=== PATIENT | female | born 1955 | race Caucasian/White ===

== ENCOUNTER 2017-06-21 03:24 | Inpatient (IN) | payer BC, OTHER ==
[~2017-06-21] VITALS: Ht 154.9 cm; Wt 87.7 kg
[2017-06-21 04:40] LABS: MEAN CORPUSCULAR HEMOGLOBIN 32.8 pg (27.0-33.0); MEAN CORPUSCULAR HGB CONC 34.2 g/dl (32.0-36.5); MEAN CORPUSCULAR VOLUME 95.9 fl (80.0-96.0); PLATELET COUNT, AUTOMATED 308 k/mm3 (150-450); RED CELL DISTRIBUTION WIDTH 13.5 % (11.5-14.5); WHITE BLOOD COUNT 13.2 K/mm3 (4.0-10.0)
[2017-06-21 04:47] LABS: ALBUMIN 3.4 GM/DL (3.2-5.2); ALBUMIN/GLOBULIN RATIO 0.87 (1.00-1.93); ALKALINE PHOSPHATASE 91 U/L (45-117); ALT/SGPT 20 U/L (12-78); AMYLASE 32 U/L (25-115); ANION GAP 11 MEQ/L (8-16); AST/SGOT 19 U/L (15-37); BILIRUBIN,DIRECT 0.2 MG/DL (0.0-0.2); BILIRUBIN,TOTAL 0.5 MG/DL (0.2-1.0); BLOOD UREA NITROGEN 16 MG/DL (7-18); CALCIUM LEVEL 9.3 MG/DL (8.8-10.2); CARBON DIOXIDE LEVEL 26 MEQ/L (21-32); CHLORIDE LEVEL 103 MEQ/L (98-107); CREATININE FOR GFR 0.78 MG/DL (0.55-1.02); GLOMERULAR FILTRATION RATE > 60.0 (>45); GLUCOSE, FASTING 168 MG/DL (80-110); POTASSIUM SERUM 4.5 MEQ/L (3.5-5.1); SODIUM LEVEL 140 MEQ/L (136-145); TOTAL PROTEIN 7.3 GM/DL (6.4-8.2)
[2017-06-21] MEDS ORDERED: ONDANSETRON 4MG/2ML VIAL (J2405) IV ONE (05:15)
[2017-06-21 05:16] LABS: BASO % 0.2 % (0.0-1.0); EOS % 0.1 % (0.0-3.0); LARGE UNSTAINED CELL # 0.2 K/mm3 (0.0-0.4); LARGE UNSTAINED CELL % 1.6 % (0.0-4.0); LYMPH # 0.7 K/mm3 (1.5-4.5); LYMPH % 3.8 % (24.0-44.0); MONO # 0.4 K/mm3 (0.0-0.8); MONO % 3.2 % (0.0-5.0); NEUTROPHILS # 12.6 K/mm3 (1.8-7.7); NEUTROPHILS % 91.2 % (36.0-66.0)
[2017-06-21] MEDS ORDERED: ISOVUE-370 76% 100ML VIAL (Q9967) As Ordered ONE (05:17)
[2017-06-21] MEDS: MORPHINE 4 MG/ML 1ML SYRINGE IV PRN ×5 (05:21→23:36)
[2017-06-21 05:47] LABS: DIFF SLIDE NUMBER 77
--- NOTE | 2017-06-21 06:20 | REPUSA ---
CLINICAL HISTORY: Abdominal pain. TECHNIQUE: Multiple axial, sagittal and coronal CT images were obtained through the abdomen and pelvi s after administration of oral and intravenous contrast material. COMMENTS: Right mastectomy. Distended gallbladder containing stone impacted at its neck. Thickening of the wall of the gallbladder with a surrounding inflammatory fat stranding and free flui d. Hepatomegaly with fatty infiltration. Sigmoid diverticulosis with diffuse thickening of the mid aspect of the sigmoid colon. Distended bladder. The liver is of uniform attenuation without mass or defect. There is no intra or extrahepatic biliary ductal dilatation. The spleen is normal. The pancreas is of normal contour and attenuation characteristics. There is no evidence of adrenal ma ss. Both kidneys demonstrate prompt and equal nephrograms. The kidneys are normal in size, shape and conf iguration. There is no evidence of renal or ureteral mass. No renal or ureteral calculi are identifie d. There is no hydroureter or hydronephrosis. No evidence for appendicitis. No evidence for small or large bowel obstruction. There is no evidence of abdominal ascites or lymphadenopathy. There is no evidence of intrinsic or extrinsic bladder mass. There is no pelvic ascites or lymphadeno kanu. Images of the lung bases show no evidence of pleural or parenchymal mass. There are no pleural effusi ons. The bony structures are free of lytic or blastic lesions. Multilevel degenerative changes are seen in volving the thoracolumbar spine. Scattered calcifications are seen involving the aorta and major bran ches compatible with atherosclerosis. IMPRESSION: Right mastectomy. Distended gallbladder containing stone impacted at its neck. Thickening of the wall of the gallbladder with a surrounding inflammatory fat stranding and free flui d. Findings are suggestive of acute calculus cholecystitis. Hepatomegaly with fatty infiltration. Sigmoid diverticulosis with diffuse thickening of the mid aspect of the sigmoid colon. Findings are s uggestive of acute diverticulitis. No perforation or abscess formation. Distended bladder. Small sliding hiatal hernia. Thank you for your kind referral of this patient.
--- NOTE | 2017-06-21 09:36 | HPEPDOC ---
General Surgery H&P Date of Admission History and Physical CHIEF COMPLAINT: abdominal pain HISTORY OF PRESENT ILLNESS: 61 F with overnight history of epigastric pain radiating to the right upper quadrant area with worsening overnight, associated with retching, nausea and vomiting. No fevers or chills reported. No previous episodes of similar symptoms. Patient reports being uncomfortable throughout the evening, could not get into a comfortable position and early this morning have some nausea, retching though nothing is coming out. Reports sharp, epigastric pain. ALLERGIES: Please see below. HOME MEDICATIONS: Please see below. PAST MEDICAL HISTORY: right breast cancer PAST SURGICAL HISTORY: right breast mastectomy right breast reconstruction- looks like a TRAM flap. Patient reports taking a vein on her leg for the breast reconstruction. Unfortunately the flap did not take and off. She does not know if she had a mesh prophylactically placed in the abdominal incision. PERSONAL/SOCIAL HISTORY: Denies smoking, alcohol use, or recreational drug use. REVIEW OF SYSTEMS: GENERAL: Denies chills, fatigue, fever, weight gain and weight loss. HEENT: Denies blurred vision and double vision. Denies ear symptoms. Denies hoarseness. NECK: Denies any neck pain. CARDIOVASCULAR: Denies chest pain and palpitations. MUSCULOSKELETAL: Denies arthralgias, back pain and thrombophlebitis. SKIN: Denies rash. NEUROLOGIC: Denies headache, stroke and transient ischemic attack. PSYCHIATRIC: Denies anxiety and depression. ENDOCRINE: Denies thyroid disease. HEMATOLOGY/ONCOLOGY: Denies any bleeding or clotting disorder. HEART: Denies any chest pains, palpitations, paroxysmal dyspnea, orthopnea. PULMONARY: Denies chronic cough, dyspnea and wheezing. GASTROINTESTINAL: Denies rectal bleeding, family history of colon cancer, constipation, diarrhea, dysphagia, heartburn and jaundice. GENITOURINARY: Denies dysuria, frequency, hematuria and nocturia. ENDOCRINE: Denies polydipsia, polyphagia, polyuria, heat or cold intolerance. INFECTIOUS: Denies any recent upper respiratory tract infection, UTI, need for use of antibiotics. NUTRITION: Reports good appetite. PHYSICAL EXAMINATION: VITAL SIGNS: Please see below. GENERAL APPEARANCE: Patient seen at bedside, appears comfortable. Awake, alert, oriented. HEENT: Normocephalic, atraumatic. [place] palpebral conjunctivae. Anicteric sclerae. Lips moist. CHEST: No chest wall abnormalities. Normal respiratory motion/effort. NECK: Supple. No thyromegaly. No lymphadenopathies. LUNGS: Lung sounds are clear to auscultation bilaterally. No wheezing appreciated. HEART: No chest wall abnormalities. Heart rate and rhythm are regular with no murmurs. ABDOMEN: Abdomen markedly round, mildly distended, protuberant lower abdominal inverted t incision from previous breast reconstruction. Tender over epigastric and right upper quadrant area with mild guarding. SKIN: Warm, moist. EXTREMITIES: Extremities have no deformities. No edema identified. NEUROLOGICAL: . ANCILLARIES: . LABORATORY DATA: Please see below. MICROBIOLOGY: Please see below. IMAGING: . IMPRESSION AND PLAN: Acute Cholecystitis from Cholelithiasis Patient will be admitted under my service. We will start her on antibiotics today, keep her NPO. Plan for laparoscopic cholecystectomy tomorrow. Details, benefits and risks of the procedures have been explained to the patient and her was at the bedside with him. Their concerns and questions were addressed at this. They are in agreement with our plan of therapy Vital Signs Vital Signs Date Time Temp Pulse Resp B/P (MAP) Pulse Ox O2 Delivery O2 Flow Rate FiO2 06/21/17 09:06 99.1 06/21/17 07:40 18 06/21/17 07:09 80 97 Room Air Laboratory Data Labs 24H Laboratory Tests 2 06/21/17 04:12: Neutrophils (%) (Auto) 91.2H, Lymphocytes (%) (Auto) 3.8L, Monocytes (%) (Auto) 3.2, Eosinophils (%) (Auto) 0.1, Basophils (%) (Auto) 0.2, Large Unclassified Cells % 1.6, Neutrophils # (Auto) 12.6H, Lymphocytes # (Auto) 0.7L, Monocytes # (Auto) 0.4, Eosinophils # (Auto) 0.0, Basophils # (Auto) 0.0, Large Unclassified Cells # 0.2, Platelet Estimate NORMAL, Anion Gap 11, Glomerular Filtration Rate > 60.0, Blood Urea Nitrogen 16, Creatinine 0.78, Sodium Level 140, Potassium Level 4.5, Chloride Level 103, Carbon Dioxide Level 26, Calcium Level 9.3, Aspartate Amino Transf (AST/SGOT) 19, Alanine Aminotransferase (ALT/ SGPT) 20, Total Creatine Kinase 38, Alkaline Phosphatase 91, Total Bilirubin 0.5 , Direct Bilirubin 0.2, Total Protein 7.3, Albumin 3.4, Creatine Kinase MB 1.0, Creatine Kinase MB Relative Index 2.63, Troponin I < 0.02, Albumin/Globulin Ratio 0.87L, Amylase Level 32, Lipase 165 CBC/BMP Laboratory Tests 06/21/17 04:12 Red Blood Count 4.27, Mean Corpuscular Volume 95.9, Mean Corpuscular Hemoglobin 32.8, Mean Corpuscular Hemoglobin Concent 34.2, Red Cell Distribution Width 13.5 , Calcium Level 9.3, Aspartate Amino Transf (AST/SGOT) 19, Alanine Aminotransferase (ALT/SGPT) 20, Total Creatine Kinase 38, Alkaline Phosphatase 91, Total Bilirubin 0.5, Direct Bilirubin 0.2, Total Protein 7.3, Albumin 3.4 Home Medications Scheduled (Caltrate 600+D 600-800 mg-Unit) 1 Tab Tab, 1 TAB PO BID, (Reported) Aspirin (Aspirin EC) 81 Mg Tab, 81 MG PO QHS, (Reported) B1/B2/B3/B5/B6 (Vitamin B Complex) 1 Tab Tab, 1 TAB PO DAILY, (Reported) Cholecalciferol (Vitamin D) 1,000 Unit Tab, 1,000 UNIT PO QHS, (Reported) Fish Oil (Fish Oil) 1,000 Mg Cap, 1,000 MG PO QHS, (Reported) Multivitamins *[facility] STOCKED* (Thera M Plus *[facility] STOCKED*) 1 Tab Tab, 1 TAB PO QHS , (Reported) Allergies Coded Allergies: Codeine (Unverified Adverse Reaction, Intermediate, NAUSEA AND VOMITING, ) KRISTOPHER MOSLEY MD Jun 21, 2017 09:36
[2017-06-21] MEDS ORDERED: ASPI81TA24 PO (09:40)
[2017-06-21] MEDS ORDERED: FISH1000 PO (09:40)
[2017-06-21] MEDS ORDERED: VITA100066 PO (09:40)
[2017-06-21] MEDS ORDERED: VITATAB11 PO (09:40)
[2017-06-21] MEDS ORDERED: CALTTAB11 PO (09:40)
[2017-06-21] MEDS ORDERED: VITMTA PO (09:40)
[2017-06-21] MEDS: ONDANSETRON 4MG/2ML VIAL (J2405) IV PRN ×2 (10:33→21:04)
[2017-06-21] MEDS ORDERED: metroNIDAZOLE 500 MG in APPROPRIATE DILUENT 1 EA IV SCH (11:00)
[2017-06-21] MEDS: KETOROLAC 30 MG/ML VIAL (J1885) IV PRN ×2 (11:45→20:59)
[2017-06-21] MEDS: SENOKOT S TAB PO SCH ×2 (13:47→20:59)
[2017-06-21] MEDS: AMPICILLIN SOD/SULBACTAM SOD 3 GM in D5W MINI-BAG PLUS 100 ML IV SCH ×3 (13:48→23:27)
[2017-06-21] MEDS: PANTOPRAZOLE 40MG INJ (PROTONIX) (C9113) IV SCH (13:48)
[2017-06-21] MEDS: metroNIDAZOLE 500 MG in APPROPRIATE DILUENT 1 EA IV SCH ×2 (13:49→20:54)
[2017-06-21 14:00] VITALS: BP 163/89
[2017-06-21] MEDS: LR 1,000 ML IV SCH ×2 (14:00→20:54)
[2017-06-21] MEDS: ACETAMINOPHEN TAB 650MG DOSE (2X325MG) PO PRN ×2 (17:19→23:36)
--- NOTE | 2017-06-21 21:35 | ECGEPIP ---
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
[2017-06-21 22:00] VITALS: BP 145/88
[2017-06-22] VITALS (8 sets, daily range): BP systolic 110–158; BP diastolic 69–92
[2017-06-22] MEDS: LR 1,000 ML IV SCH ×3 (00:33→17:24)
[2017-06-22] MEDS: metroNIDAZOLE 500 MG in APPROPRIATE DILUENT 1 EA IV SCH ×4 (02:06→20:20)
[2017-06-22] MEDS: AMPICILLIN SOD/SULBACTAM SOD 3 GM in D5W MINI-BAG PLUS 100 ML IV SCH ×4 (05:47→23:41)
[2017-06-22 05:55] LABS: BASO % 0.2 % (0.0-1.0); EOS # 0.1 K/mm3 (0.0-0.50); EOS % 0.6 % (0.0-3.0); LARGE UNSTAINED CELL # 0.4 K/mm3 (0.0-0.4); LARGE UNSTAINED CELL % 2.7 % (0.0-4.0); LYMPH % 4.5 % (24.0-44.0); MEAN CORPUSCULAR HEMOGLOBIN 33.4 pg (27.0-33.0); MEAN CORPUSCULAR HGB CONC 34.2 g/dl (32.0-36.5); MEAN CORPUSCULAR VOLUME 97.5 fl (80.0-96.0); MONO # 0.9 K/mm3 (0.0-0.8); MONO % 6.3 % (0.0-5.0); NEUTROPHILS # 11.7 K/mm3 (1.8-7.7); NEUTROPHILS % 85.7 % (36.0-66.0); PLATELET COUNT, AUTOMATED 322 k/mm3 (150-450); RED CELL DISTRIBUTION WIDTH 13.6 % (11.5-14.5); WHITE BLOOD COUNT 13.7 K/mm3 (4.0-10.0)
[2017-06-22 06:18] LABS: ALBUMIN 2.7 GM/DL (3.2-5.2); ALBUMIN/GLOBULIN RATIO 0.77 (1.00-1.93); ALKALINE PHOSPHATASE 93 U/L (45-117); ALT/SGPT 36 U/L (12-78); ANION GAP 9 MEQ/L (8-16); AST/SGOT 33 U/L (15-37); BILIRUBIN,TOTAL 0.6 MG/DL (0.2-1.0); BLOOD UREA NITROGEN 15 MG/DL (7-18); CALCIUM LEVEL 8.2 MG/DL (8.8-10.2); CARBON DIOXIDE LEVEL 27 MEQ/L (21-32); CHLORIDE LEVEL 104 MEQ/L (98-107); CREATININE FOR GFR 0.58 MG/DL (0.55-1.02); GLOMERULAR FILTRATION RATE > 60.0 (>45); GLUCOSE, FASTING 130 MG/DL (80-110); SODIUM LEVEL 140 MEQ/L (136-145); TOTAL PROTEIN 6.2 GM/DL (6.4-8.2)
[2017-06-22] MEDS: SENOKOT S TAB PO SCH ×2 (07:46→20:20)
[2017-06-22] MEDS: PANTOPRAZOLE 40MG INJ (PROTONIX) (C9113) IV SCH (07:46)
[2017-06-22] MEDS: KETOROLAC 30 MG/ML VIAL (J1885) IV PRN ×2 (07:47→17:24)
[2017-06-22] MEDS: ONDANSETRON 4MG/2ML VIAL (J2405) IV PRN (07:47)
[2017-06-22] MEDS: ENOXAPARIN 40 MG/0.4 ML SYRINGE (J1650) SC SCH (08:50)
--- NOTE | 2017-06-22 10:43 | IPNPDOC ---
Subjective General Date/Time Seen The patient was seen on 06/22/17 at 10:41. Subject Chief Complaint/History The patient is a 61-year-old female admitted with a reason for visit of Abdominal Pain. Patient continued to have abdominal discomfort overnight but has moved more to the right upper quadrant than the periumbilical/epigastric area. Reports some mild nausea but no vomiting. Current Medications Current Medications Current Medications Acetaminophen (Tylenol Tab) 650 mg Q4HP PRN PO MILD PAIN or TEMP > 101 Last administered on 06/21/17 23:36; Start 06/21/17 at 09:30; Stop 07/21/17 at 09:29 Ampicillin Sodium/ Sulbactam Sodium 3 gm/Dextrose 100 ml @ 200 mls/hr Q6H IV Last administered on 06/22/17 05:47; Start 06/21/17 at 12:00; Stop 06/28/17 at 11:59 Enoxaparin Sodium (Lovenox) 40 mg DAILY SC ; Start 06/22/17 at 09:00; Stop 06/27 at 08:59 Home Med (Med Rec Complete!) ASDIRECTED XX ; Start 06/21/17 at 09:45; Stop at 09:45; Status DC Ketorolac Tromethamine (ToRADol) 30 mg Q6HP PRN IV MILD/MODERATE PAIN (PS 1-7) Last administered on 06/22/17 07:47; Start 06/21/17 at 09:30; Stop 06/26/17 at 09:29 Lactated Ringer's 1,000 ml @ 125 mls/hr Q8H IV Last administered on 06/22/17 00:33; Start 06/21/17 at 09:28; Stop 07/21/17 at 09:27 Metronidazole 500 mg/IV Miscellaneous Supplies 100 ml @ 100 mls/hr Q6H IV ; Start 06/21/17 at 11:00; Stop 06/21/17 at 13:06; Status DC Metronidazole 500 mg/IV Miscellaneous Supplies 100 ml @ 100 mls/hr Q6H IV Last administered on 06/22/17 07:46; Start 06/21/17 at 14:00; Stop 06/28/17 at 13:59 Morphine Sulfate (Morphine Sulfate Inj) 4 mg Q2HP PRN IV SEVERE PAIN (PS 8-10) Last administered on 06/21/17 23:36; Start 06/21/17 at 09:30; Stop 06/28/17 at 09:29 Morphine Sulfate (Morphine Sulfate Inj) 4 mg Q30M PRN IV SEVERE PAIN (PS 8-10) Last administered on 06/21/17 07:13; Start 06/21/17 at 05:15; Stop 06/21/17 at 07:14; Status DC Ondansetron HCl (ZOFRAN INJection) 4 mg Q6HP PRN IV NAUSEA OR VOMITING Last administered on 06/22/17 07:47; Start 06/21/17 at 09:30; Stop 07/21/17 at 09:29 Pantoprazole Sodium (Protonix) 40 mg DAILY IV Last administered on 06/22/17 07 :46; Start 06/21/17 at 09:00; Stop 07/21/17 at 08:59 Senna/Docusate Sodium (Senokot S) 1 tab BID PO Last administered on 06/22/17 07:46; Start 06/21/17 at 09:00; Stop 07/21/17 at 08:59 Allergies Coded Allergies: Codeine (Unverified Adverse Reaction, Intermediate, NAUSEA AND VOMITING, ) Objective Physical Examination Examination GENERAL APPEARANCE:Patient seen, laying in bed, awake, alert, and oriented. Comfortable, in no acute distress. SKIN: Warm and dry HEENT: Normocephalic, atraumatic. [place] palpebral conjunctiva, anicteric sclerae. Lips and mucosa appear moist. NECK: Supple, no thyromegaly. No obvious jugular venous distention. LUNGS: Clear to auscultation bilaterally. No wheezing appreciated. HEART: No chest wall abnormalities. Regular rate and rhythm with no murmurs appreciated. ABDOMEN: Abdomen is , soft, . Round, moderately distended. Tender over her right upper quadrants with local guarding. No abdominal inverted T-incision without any gross herniation. EXTREMITIES: Extremities have no deformities. No edema identified. Vital Signs Vital Signs Date Time Temp Pulse Resp B/P (MAP) Pulse Ox O2 Delivery O2 Flow Rate FiO2 06/22/17 06:00 98.5 112 18 150/69 (96) 93 Room Air I&Os I&O- Last 24 Hours up to 6 AM 06/22/17 06:00 Intake Total 2230 ml Output Total 0 ml Balance 2230 ml Laboratory Data Labs 24H Laboratory Tests 2 06/22/17 05:34: White Blood Count 13.7H, Red Blood Count 3.96L, Hemoglobin 13.2, Hematocrit 38.6 , Mean Corpuscular Volume 97.5H, Mean Corpuscular Hemoglobin 33.4H, Mean Corpuscular Hemoglobin Concent 34.2, Red Cell Distribution Width 13.6, Platelet Count 322, Neutrophils (%) (Auto) 85.7H, Lymphocytes (%) (Auto) 4.5L, Monocytes (%) (Auto) 6.3H, Eosinophils (%) (Auto) 0.6, Basophils (%) (Auto) 0.2, Neutrophils # (Auto) 11.7H, Lymphocytes # (Auto) 1.0L, Monocytes # (Auto) 0.9H, Eosinophils # (Auto) 0.1, Basophils # (Auto) 0.0, Large Unclassified Cells % 2.7 , Large Unclassified Cells # 0.4, Anion Gap 9, Glomerular Filtration Rate > 60.0 , Blood Urea Nitrogen 15, Creatinine 0.58, Sodium Level 140, Potassium Level 4.0 , Chloride Level 104, Carbon Dioxide Level 27, Calcium Level 8.2L, Aspartate Amino Transf (AST/SGOT) 33, Alanine Aminotransferase (ALT/SGPT) 36, Alkaline Phosphatase 93, Total Bilirubin 0.6, Total Protein 6.2L, Albumin 2.7#L, Albumin/ Globulin Ratio 0.77L CBC/BMP Laboratory Tests 06/22/17 05:34 Red Blood Count 3.96 L, Mean Corpuscular Volume 97.5 H, Mean Corpuscular Hemoglobin 33.4 H, Mean Corpuscular Hemoglobin Concent 34.2, Red Cell Distribution Width 13.6, Neutrophils (%) (Auto) 85.7 H, Lymphocytes (%) (Auto) 4.5 L, Monocytes (%) (Auto) 6.3 H, Eosinophils (%) (Auto) 0.6, Basophils (%) ( Auto) 0.2, Neutrophils # (Auto) 11.7 H, Lymphocytes # (Auto) 1.0 L, Monocytes # (Auto) 0.9 H, Eosinophils # (Auto) 0.1, Basophils # (Auto) 0.0, Calcium Level 8.2 L, Aspartate Amino Transf (AST/SGOT) 33, Alanine Aminotransferase (ALT/SGPT ) 36, Alkaline Phosphatase 93, Total Bilirubin 0.6, Total Protein 6.2 L, Albumin 2.7 #L Impression Cholelithiasis with acute cholecystitis Patient scheduled to undergo laparoscopic cholecystectomy today. Reviewed with her risks of the surgery, possibility of converting open surgery. Consent was obtained from the patient. Continue perioperative antibiotics for now. Plan / VTE VTE Prophylaxis Ordered?: Yes KRISTOPHER MOSLEY MD Jun 22, 2017 10:43
[2017-06-22] MEDS ORDERED: BUPIVACAINE HCL 0.25% 30 ML VIAL As Ordered ONE (10:58)
[2017-06-22] MEDS ORDERED: LIDOCAINE 1% SDV INJ 30 ML VIAL As Ordered ONE (10:58)
[2017-06-22] MEDS ORDERED: metroNIDAZOLE/NACL 500MG(5MG/ML)100 ML BAG (S0030) As Ordered ONE (11:01)
[2017-06-22] MEDS ORDERED: PROPOFOL 200 MG/20 ML VIAL As Ordered ONE (11:42)
[2017-06-22] MEDS ORDERED: ROCURONIUM BROMIDE 50 MG/5 ML VIAL/SYRINGE As Ordered ONE (11:42)
[2017-06-22] MEDS ORDERED: MIDAZOLAM INJ 2 MG/2 ML VIAL (J2250) As Ordered ONE (11:42)
[2017-06-22] MEDS ORDERED: ONDANSETRON 4MG/2ML VIAL (J2405) As Ordered ONE (11:42)
[2017-06-22] MEDS ORDERED: LIDOCAINE 2% INJ 100 MG/5 ML SDV (FOR ANES.) As Ordered ONE (11:42)
[2017-06-22] MEDS ORDERED: dexameTHASONE 4 MG/ML 1ML VIAL (J1100) As Ordered ONE (11:42)
[2017-06-22] MEDS ORDERED: KETOROLAC 60 MG/2 ML VIAL (J1885) As Ordered ONE (11:42)
[2017-06-22] MEDS ORDERED: fentaNYL 250 MCG/5 ML INJECTION (J3010) As Ordered ONE (11:42)
[2017-06-22] MEDS ORDERED: UNASYN 1.5 GM VIAL As Ordered ONE (11:51)
[2017-06-22] MEDS ORDERED: LABETALOL HCL 100 MG/20 ML VIAL As Ordered ONE (12:18)
[2017-06-22] MEDS ORDERED: GLYCOPYRROLATE INJ 0.2 MG/ML 2 ML VIAL As Ordered ONE (12:28)
[2017-06-22] MEDS ORDERED: NEOSTIGMINE 1MG/ML 5 ML SYRINGE (J2710) As Ordered ONE (12:28)
--- NOTE | 2017-06-22 13:53 | ROOPDOC ---
[facility] Report Of Operation Report of Operation DATE OF PROCEDURE: 06/22/17 PREPROCEDURE DIAGNOSES: Acute cholecystitis POSTPROCEDURE DIAGNOSES: Gangrenous cholecystitis. PROCEDURE: Laparoscopic cholecystectomy. SURGEON: Corie Bansal MD HEATER OPERATOR HELPER: Kamran Lozano MD ANESTHESIA: General ESTIMATED BLOOD LOSS: Approximately 50 mL. COMPLICATIONS: None. REMARKS: Gangrenous gallbladder wall thick rind of fibrotic peritoneum covering the area consistent with acute over chronic cholecystitis. The cystic duct is thickened and fibrotic. 2 PDS Endoloops were used to control the cystic duct stump. A 10 flat LORE drain left close to the gallbladder bed for monitoring. Tisseel fibrin glue placed around the cystic duct stump.. PROCEDURE NOTE: 61-year-old female who presented to the emergency department with severe epigastric and right upper quadrant pain, mild leukocytosis, and imaging consistent with inflamed gallbladder.. DESCRIPTION OF PROCEDURE: She is brought to the OR for laparoscopic cholecystectomy. She has been receiving 3 g of Unasyn IV every 6 hours and 500 mg of metronidazole every 8 hours since admission yesterday. She placed supine on the table. General endotracheal anesthesia started. Her abdomen prepped and draped in usual sterile fashion. She had compression stockings for DVT prophylaxis. After surgical timeout we began our surgery. Entry into the abdomen done through an incision at the left upper quadrant area. She had a previous intra-abdominal incision for her breast reconstruction and her umbilicus has been transplanted superiorly. Veress needle inserted and intra-abdominal insufflation done to a pressure of 15 mmHg. using an incision below the umbilicus. A 5 mm Visiport was placed under direct vision of laparoscope. The entry site was inspected for injury and none was noted. Likewise the Veress needle insertion site was inspected and no injury likewise noted. She was then placed on a steep reverse Trendelenburg position, her right side tilted up about 30 to further expose the gallbladder. 3 working ports were placed in their usual position including 11 mm port at the epigastric area , and two 5 mm ports along the right subcostal line. OPERATIVE FINDINGS: Gallbladder was markedly distended and difficult to manipulate with inflamed omentum wrapped around the gallbladder. Visible funez of the gallbladder distinctly shows dark, black, necrotic wall. No gross perforation noted. Liver appears fatty replaced. Murky serous fluid noted around the perihepatic area. Gallbladder wall is acutely thickened on top of chronically thickened hard wall. Large stone lodged at the neck of the gallbladder. Thick dark, black bile. A small hole pluscreated fundus of the gallbladder with the Bovie cauteryand gallbladder contents suctioned off to decompress the gallbladder. Black, thick oil-like bile aspirated. Fundus of gallbladder was grasped and the gallbladder elevated superiorly further omental adhesions were lysed mainly with blunt dissection the left of the small bowel. The adipose tissue surrounding the wall of the gallbladder circumferentially was quite friable and with blunt dissection using laparoscopic peanuts as well as the suction poultry and fish butcher device, the surrounding adipose tissue was dissected. Despite this hard to ascertain the anatomy of the gallbladder. As we are able to lift the gallbladder out further, I followed the curvature of the anterior wall of the gallbladder infundibulum. Mainly with blunt dissection area which looks to be where the lymph node [place] is located was bluntly dissected small tubular structure which is the cystic artery. I continued dissecting laterally and posteriorly to lift off further the posterior wall of the gallbladder from the liver bed. Following this area also medially is able to lift off the underside of the neck of the gallbladder exposing what looks like the cystic duct. Cystic duct is enlarged, thickened and fibrotic and hard to grasp. There is a large stone lodged at the neck of the gallbladder making further dissection difficult.I milked the stone off the infundibulum and the gallbladder towards the mid body to allow us to manipulate the area much better. The previous identified cystic artery was clipped 4 times and divided. This allowed us to get behind the neck of the gallbladder further dissecting medially to laterally to further free up the cystic duct doubly previously identified. I palpated with the laparoscopic graspers the cystic duct and could not feel any stones within it. As this was too big to accommodate a 10 mm Hemoclip, and then proceeded taking the rest of the gallbladder down from the liver plate in the typical dome down fashion to fully detached the gallbladder from the liver plate until we reached the cystic duct. Thus at the end of this maneuver, the gallbladder is then only attached to the cystic duct. I then used 2-0 PDS Endoloops to control my cystic duct stump placing the ligature just after the neck of the gallbladder. The cystic duct was then divided right after the Endoloops were placed. The cystic duct stump appears intact with the loops with no signs of leakage. I then inspected the gallbladder bed and this was relatively dry.. I used Tisseel fibrin glue and sprayed it at the liver bed as well at the cystic duct stump. The gallbladder was placed in an Endo Catch bag.. We enlarged the epigastric port site to accommodate the 10 mm Endo Catch bag and the gallbladder was delivered into the bag and retrieved from the epigastric port site using.. On re-insufflation, we examined our surgical site. Liver bed shows no bleeding. The Endoloops at the cystic duct and Clips at the cysticartery were noted to be well placed. The abdomen was then deflated, all ports removed. The fascial defect at the epigastric port site was closed with 0 Vicryl. All skin incisions closed with 4-0 Monocryl in subcuticular fashion Dermabond was used for wound coverage. Patient was then promptly awake and extubated and brought to the recovery room stable sponges and instruments verified to be correct . KRISTOPHER BANSAL MD Jun 22, 2017 13:53
[2017-06-22] MEDS ORDERED: LR 1,000 ML IV SCH (14:30)
[2017-06-22] MEDS ORDERED: KETOROLAC 30 MG/ML VIAL (J1885) IV PRN (14:30)
[2017-06-22] MEDS ORDERED: PERCOCET 5MG/325MG TAB PO PRN (14:30)
[2017-06-22] MEDS ORDERED: HYDROmorphone HCL 1 MG/ML SYRINGE (J1170) IV PRN (14:30)
[2017-06-22] MEDS ORDERED: ONDANSETRON 4MG/2ML VIAL (J2405) IV PRN (14:30)
[2017-06-22] MEDS ORDERED: fentaNYL 100 MCG/2 ML INJECTION (J3010) IV PRN (14:30)
[2017-06-22] MEDS ORDERED: METOCLOPRAMIDE INJ 10MG/2ML VIAL (J2765) IV PRN (14:30)
--- NOTE | 2017-06-22 16:03 | REP ---
Upper quadrant sonography: History: Right upper quadrant pain. Comparison is made with this morning's CT abdomen and pelvis. Findings: Scanning through the right upper quadrant of the abdomen demonstrates a dilated 11.5 cm gallbladder filled with echogenic sludge. There is moderate to marked gallbladder wall thickening measuring up to 12 mm. There is a shadowing calculus near the neck of the gallbladder. There is some pericholecystic fluid. Apart from the fact that no tenderness to scanning was elicited, the findings are compatible with acute cholecystitis. The common bile duct is normal measuring 0.4 cm in greatest diameter. No focal liver lesion is seen. There is a trace of free fluid noted. Pancreas is obscured by abdominal gas. There is a 1.4 cm cyst in the lower pole right kidney. The light the right kidney measures 10.4 x 4.4 x 4.8 cm. No hydronephrosis. Impression: Dilated gallbladder with markedly thickened gallbladder wall and pericholecystic fluid. Echogenic sludge and a gallstone are seen in the gallbladder lumen. Findings are suggestive of acute cholecystitis. There is a trace of free fluid. A small cyst is seen in the lower pole right kidney. Signed by Omid Hawk MD 06/22/2017 05:12 P
[2017-06-23] MEDS: ACETAMINOPHEN TAB 650MG DOSE (2X325MG) PO PRN ×4 (01:16→21:44)
[2017-06-23] MEDS: metroNIDAZOLE 500 MG in APPROPRIATE DILUENT 1 EA IV SCH ×2 (01:17→08:06)
[2017-06-23 02:00] VITALS: BP 140/83
[2017-06-23] MEDS: AMPICILLIN SOD/SULBACTAM SOD 3 GM in D5W MINI-BAG PLUS 100 ML IV SCH ×2 (05:42→13:00)
[2017-06-23 06:00] VITALS: BP_SYST 150; BP_SYST 184; BP_DIAS 86; BP_DIAS 90
[2017-06-23] MEDS: LR 1,000 ML IV SCH ×2 (06:31→09:28)
[2017-06-23 07:19] LABS: BASO % 0.1 % (0.0-1.0); EOS % 0.1 % (0.0-3.0); LARGE UNSTAINED CELL # 0.3 K/mm3 (0.0-0.4); LARGE UNSTAINED CELL % 3.1 % (0.0-4.0); LYMPH % 9.1 % (24.0-44.0); MEAN CORPUSCULAR HEMOGLOBIN 33.2 pg (27.0-33.0); MEAN CORPUSCULAR HGB CONC 34.3 g/dl (32.0-36.5); MEAN CORPUSCULAR VOLUME 96.9 fl (80.0-96.0); MONO # 0.6 K/mm3 (0.0-0.8); MONO % 5.7 % (0.0-5.0); NEUTROPHILS # 8.7 K/mm3 (1.8-7.7); NEUTROPHILS % 81.8 % (36.0-66.0); PLATELET COUNT, AUTOMATED 335 k/mm3 (150-450); RED CELL DISTRIBUTION WIDTH 13.3 % (11.5-14.5); WHITE BLOOD COUNT 10.6 K/mm3 (4.0-10.0)
[2017-06-23 07:41] LABS: ALBUMIN 2.3 GM/DL (3.2-5.2); ALBUMIN/GLOBULIN RATIO 0.58 (1.00-1.93); ALKALINE PHOSPHATASE 84 U/L (45-117); ALT/SGPT 41 U/L (12-78); ANION GAP 7 MEQ/L (8-16); AST/SGOT 28 U/L (15-37); BILIRUBIN,TOTAL 0.4 MG/DL (0.2-1.0); BLOOD UREA NITROGEN 14 MG/DL (7-18); CALCIUM LEVEL 8.3 MG/DL (8.8-10.2); CARBON DIOXIDE LEVEL 29 MEQ/L (21-32); CHLORIDE LEVEL 102 MEQ/L (98-107); CREATININE FOR GFR 0.64 MG/DL (0.55-1.02); GLOMERULAR FILTRATION RATE > 60.0 (>45); GLUCOSE, FASTING 130 MG/DL (80-110); POTASSIUM SERUM 3.6 MEQ/L (3.5-5.1); SODIUM LEVEL 138 MEQ/L (136-145); TOTAL PROTEIN 6.3 GM/DL (6.4-8.2)
[2017-06-23] MEDS: ENOXAPARIN 40 MG/0.4 ML SYRINGE (J1650) SC SCH (08:06)
[2017-06-23] MEDS: PANTOPRAZOLE 40MG INJ (PROTONIX) (C9113) IV SCH (08:06)
[2017-06-23] MEDS: SENOKOT S TAB PO SCH ×2 (08:17→19:59)
[2017-06-23 10:00] VITALS: BP 160/80
[2017-06-23 14:00] VITALS: BP_SYST 148; BP_SYST 168; BP_DIAS 84
[2017-06-23 18:00] VITALS: BP 162/85
[2017-06-23] MEDS: AUGMENTIN 875 MG TAB GT SCH (20:27)
[2017-06-23] MEDS: metroNIDAZOLE (FLAGYL) 500 MG TAB PO SCH (21:44)
[2017-06-23 22:00] VITALS: BP 162/88
[2017-06-24] MEDS: metroNIDAZOLE (FLAGYL) 500 MG TAB PO SCH (05:28)
[2017-06-24] MEDS: ACETAMINOPHEN TAB 650MG DOSE (2X325MG) PO PRN (05:31)
[2017-06-24 06:00] VITALS: BP 130/80
[2017-06-24] MEDS: PANTOPRAZOLE 40MG INJ (PROTONIX) (C9113) IV SCH (07:38)
[2017-06-24] MEDS: SENOKOT S TAB PO SCH (07:38)
[2017-06-24] MEDS: ENOXAPARIN 40 MG/0.4 ML SYRINGE (J1650) SC SCH (07:41)
[2017-06-24] MEDS: AUGMENTIN 875 MG TAB GT SCH (07:41)
[2017-06-24 10:34] LABS: BASO % 0.5 % (0.0-1.0); EOS # 0.3 K/mm3 (0.0-0.50); EOS % 4.4 % (0.0-3.0); LARGE UNSTAINED CELL # 0.2 K/mm3 (0.0-0.4); LARGE UNSTAINED CELL % 2.5 % (0.0-4.0); LYMPH # 1.3 K/mm3 (1.5-4.5); LYMPH % 17.8 % (24.0-44.0); MEAN CORPUSCULAR HEMOGLOBIN 32.3 pg (27.0-33.0); MEAN CORPUSCULAR HGB CONC 32.4 g/dl (32.0-36.5); MEAN CORPUSCULAR VOLUME 99.7 fl (80.0-96.0); MONO # 0.5 K/mm3 (0.0-0.8); MONO % 7.6 % (0.0-5.0); NEUTROPHILS # 4.2 K/mm3 (1.8-7.7); NEUTROPHILS % 67.2 % (36.0-66.0); PLATELET COUNT, AUTOMATED 361 k/mm3 (150-450); RED CELL DISTRIBUTION WIDTH 13.6 % (11.5-14.5); WHITE BLOOD COUNT 6.2 K/mm3 (4.0-10.0)
[2017-06-24 10:50] LABS: ALBUMIN 2.4 GM/DL (3.2-5.2); ALBUMIN/GLOBULIN RATIO 0.75 (1.00-1.93); ALKALINE PHOSPHATASE 76 U/L (45-117); ALT/SGPT 35 U/L (12-78); ANION GAP 6 MEQ/L (8-16); AST/SGOT 27 U/L (15-37); BILIRUBIN,TOTAL 0.3 MG/DL (0.2-1.0); BLOOD UREA NITROGEN 15 MG/DL (7-18); CARBON DIOXIDE LEVEL 30 MEQ/L (21-32); CHLORIDE LEVEL 105 MEQ/L (98-107); CREATININE FOR GFR 0.62 MG/DL (0.55-1.02); GLOMERULAR FILTRATION RATE > 60.0 (>45); GLUCOSE, FASTING 84 MG/DL (80-110); POTASSIUM SERUM 4.1 MEQ/L (3.5-5.1); SODIUM LEVEL 141 MEQ/L (136-145); TOTAL PROTEIN 5.6 GM/DL (6.4-8.2)
[2017-06-24] MEDS ORDERED: AMOX875T2 PO (12:59)
[2017-06-24] MEDS ORDERED: FLAG500T PO (12:59)
--- NOTE | 2017-07-14 12:57 | DS.PDOC ---
Discharge Summary General Date of Admission Jun 21, 2017 at 09:28 Date of Discharge 06/24/2017 Attending Physician: KRISTOPHER MOSLEY MD Discharge Summary PROCEDURES PERFORMED DURING STAY: llaparoscopic cholecystectomy ADMITTING DIAGNOSES: 1. Acute cholecystitis 2.Moderate obesity 3.History of right breast cancer with prior history of autologous breast reconstruction DISCHARGE DIAGNOSES: 1. Gangrenous cholecystitis 2. Moderate obesity 3. History of breast cancer COMPLICATIONS/CHIEF COMPLAINT: Abdominal Pain. HISTORY OF PRESENT ILLNESS: patient presented to the emergency room with abdominal pain, nausea, vomiting found to have evidence of acute cholecystitis. Details of this is found in the history and physical examination. HOSPITAL COURSE: patient presented herself to the emergency department. She was found to have evidence of acute cholecystitis. She has leukocytosis of 13,000 her LFTs were normal. she was admitted under my service. He started IV antibiotics. He made her nothing by mouth. We scheduled her for laparoscopic cholecystectomy following day. In the OR she was found to have gangrenous cholecystitis. We were able to complete the cholecystectomy laparoscopically. A drain was left in place for postoperative monitoring. She did well postoperatively. Her drain puts out serosanguineous fluid and no evidence of biliary leakage. Her leukocytosis resolved. She immediately felt better after procedure. She was started on clear liquids seemed is a procedure which she tolerated and was advanced to regular food. She did not show any signs of sepsis postoperatively. Her drain was removed on the discharge which is postoperative day #2. oon the discharge she appears well. She has been afebrile since surgery. She is tolerating regular foods. She has minimal discomfort at the incision site at the right upper quadrant area. Her drain was pulled out which is putting out minimal amounts of serosanguineous fluid. DISCHARGE MEDICATIONS: Please see below. ALLERGIES: Please see below. PHYSICAL EXAMINATION ON DISCHARGE: VITAL SIGNS: Please see below. GENERAL: comfortable HEENT: anicteric sclerae, lips and mucosa moist NECK: supple, no jugular venous distention CARDIOVASCULAR EXAMINATION: rregular heart rate and rhythm RESPIRATORY EXAMINATION: clear to auscultation bilaterally ABDOMINAL EXAMINATION: round, soft, nondistended. Nontender and palpation. Port sites are healing without any erythema. Drain site is dry EXTREMITIES: no edema SKIN: no rashes NEUROLOGICAL EXAMINATION: awake, alert and oriented PSYCHIATRIC EXAMINATION: within affect normal LABORATORY DATA: Please see below. IMAGING: CT of the abdomen and pelvis and ultrasound to gallbladder done at the emergency room PROGNOSIS: good ACTIVITY: light activity tends to weeks. DIET: regular diet as tolerated. DISCHARGE PLAN: discharge to home on oral antibiotics to complete a 14 day course DISPOSITION: 01 Home, Self-Care. DISCHARGE INSTRUCTIONS: 1. Light activity 2 weeks 2. May keep incisions open to air. 3. May shower, pat the incisions dry. 4. Follow-up in clinic in 2 weeks DISCHARGE CONDITION: improved. TIME SPENT ON DISCHARGE: Greater than 30 minutes. Discharge Medications Scheduled (Caltrate 600+D 600-800 mg-Unit) 1 Tab Tab, 1 TAB PO BID, (Reported) Amoxicillin/Clavulanate Potas (Amoxicillin/Clavulanate P 875-125 mg) 1 Tab Tab, 875 MG PO BID Aspirin (Aspirin EC) 81 Mg Tab, 81 MG PO QHS, (Reported) B1/B2/B3/B5/B6 (Vitamin B Complex) 1 Tab Tab, 1 TAB PO DAILY, (Reported) Cholecalciferol (Vitamin D) 1,000 Unit Tab, 1,000 UNIT PO QHS, (Reported) Fish Oil (Fish Oil) 1,000 Mg Cap, 1,000 MG PO QHS, (Reported) Metronidazole (Flagyl) 500 Mg Tab, 500 MG PO Q8H Multivitamins *[facility] STOCKED* (Thera M Plus *[facility] STOCKED*) 1 Tab Tab, 1 TAB PO QHS , (Reported) Allergies Coded Allergies: Codeine (Unverified Adverse Reaction, Intermediate, NAUSEA AND VOMITING, ) KRISTOPHER MOSLEY MD Jul 14, 2017 12:57
== END 2017-06-24 14:00 | disposition home or self-care (01) | DRG 263 ==
LOC: M ED 03:24 → M ED INP 09:28 → M MS5PR 11:52 → M MSPAV 06-22 10:40
PROVIDERS: ADMIT Surgery; ATTEND Surgery
PROC: 0FT44ZZ Resection of Gallbladder, Percutaneous Endoscopic Approach (ICD-10-PCS; principal; 2017-06-22 08:00)
DX: K80.12 Calculus of gallbladder with acute and chronic cholecystitis without obstruction (principal); E66.9 Obesity, unspecified; Z85.3 Personal history of malignant neoplasm of breast; Z79.82 Long term (current) use of aspirin; Z79.899 Other long term (current) drug therapy; Z88.5 Allergy status to narcotic agent; Z90.11 Acquired absence of right breast and nipple

== ENCOUNTER → 2017-07-08 | Outpatient (REF) | payer OTHER ==
[~2017-07-08] MED LIST: AMOX875T2 PO; ASPI81TA24 PO; CALTTAB11 PO; FISH1000 PO; FLAG500T PO; VITA100066 PO; VITATAB11 PO; VITMTA PO
== END ==
LOC: M SFHCADAM 09:42
PROVIDERS: ATTEND Family Medicine
DX: R30.0 Dysuria (principal)

== ENCOUNTER → 2017-07-16 | Outpatient (CLI) | payer BC, OTHER ==
[2017-07-16 17:34] LABS: ALBUMIN 2.9 GM/DL (3.2-5.2); ALBUMIN/GLOBULIN RATIO 0.81 (1.00-1.93); ALKALINE PHOSPHATASE 90 U/L (45-117); ALT/SGPT 41 U/L (12-78); ANION GAP 10 MEQ/L (8-16); AST/SGOT 29 U/L (15-37); BILIRUBIN,TOTAL 0.4 MG/DL (0.2-1.0); BLOOD UREA NITROGEN 12 MG/DL (7-18); CALCIUM LEVEL 8.3 MG/DL (8.8-10.2); CARBON DIOXIDE LEVEL 28 MEQ/L (21-32); CHLORIDE LEVEL 102 MEQ/L (98-107); CREATININE FOR GFR 0.65 MG/DL (0.55-1.02); GLOMERULAR FILTRATION RATE > 60.0 (>45); GLUCOSE, FASTING 115 MG/DL (80-110); POTASSIUM SERUM 4.2 MEQ/L (3.5-5.1); SODIUM LEVEL 140 MEQ/L (136-145); TOTAL PROTEIN 6.5 GM/DL (6.4-8.2)
[2017-07-16 19:51] LABS: MEAN CORPUSCULAR HEMOGLOBIN 32.9 pg (27.0-33.0); MEAN CORPUSCULAR HGB CONC 34.3 g/dl (32.0-36.5); MEAN CORPUSCULAR VOLUME 95.8 fl (80.0-96.0); RED CELL DISTRIBUTION WIDTH 13.2 % (11.5-14.5); WHITE BLOOD COUNT 10.4 K/mm3 (4.0-10.0)
[2017-07-16 20:43] LABS: BANDS 2 % (< 11); BASOPHILS 3 % (0-4); EOSINOPHILS 5 % (0-5)
== END ==
LOC: M LAB 16:05
PROVIDERS: ATTEND Surgery
DX: R10.84 Generalized abdominal pain (principal)

== ENCOUNTER → 2017-07-23 | Outpatient (CLI) | payer BC, OTHER ==
--- NOTE | 2017-07-23 19:19 | REP ---
KUB ABDOMEN AND PELVIS: KUB film of abdomen and pelvis is performed. Bowel gas pattern is normal. There is no dilatation of bowel loops. Scattered metallic clips are seen in the abdomen. There are mild degenerative changes of the spine. IMPRESSION: No evidence of bowel obstruction. Signed by David Jiménez MD 07/24/2017 02:20 P
== END ==
LOC: M RAD 15:31
PROVIDERS: ATTEND Surgery
DX: R10.9 Unspecified abdominal pain (principal)

== ENCOUNTER → 2017-08-27 | Outpatient (REF) | payer OTHER ==
[2017-08-27 16:48] LABS: YEAST LIKE CELL URINE AUTO SMALL
== END ==
LOC: M SFHCADAM 13:37
PROVIDERS: ATTEND Physician Assistant
DX: N39.0 Urinary tract infection, site not specified (principal)

== ENCOUNTER → 2017-11-03 | Outpatient (CLI) | payer BC, OTHER ==
[2017-11-03 07:27] LABS: ESTIMATED AVERAGE GLUCOSE 100 MG/DL (60-110); HEMOGLOBIN A1c 5.1 %
[2017-11-03 07:41] LABS: ALBUMIN 3.3 GM/DL (3.2-5.2); ALBUMIN/GLOBULIN RATIO 0.92 (1.00-1.93); ALKALINE PHOSPHATASE 75 U/L (45-117); ALT/SGPT 51 U/L (12-78); ANION GAP 4 MEQ/L (8-16); AST/SGOT 31 U/L (7-37); BILIRUBIN,TOTAL 0.6 MG/DL (0.2-1.0); BLOOD UREA NITROGEN 22 MG/DL (7-18); CARBON DIOXIDE LEVEL 31 MEQ/L (21-32); CHLORIDE LEVEL 105 MEQ/L (98-107); CHOLESTEROL LEVEL 182 MG/DL (<200); CHOLESTEROL RISK RATIO 2.303 (<5); CREATININE FOR GFR 0.79 MG/DL (0.55-1.02); GLOMERULAR FILTRATION RATE > 60.0 (>45); GLUCOSE, FASTING 104 MG/DL (80-110); HDL CHOLESTEROL 79 MG/DL (>40); LDL CHOLESTEROL 89.2 MG/DL (<100); NON-HDL-C 103 MG/DL; POTASSIUM SERUM 4.8 MEQ/L (3.5-5.1); SODIUM LEVEL 140 MEQ/L (136-145); TOTAL PROTEIN 6.9 GM/DL (6.4-8.2); TRIGLYCERIDES LEVEL 69 MG/DL (<150)
== END ==
LOC: M LAB 06:27
DX: K76.0 Fatty (change of) liver, not elsewhere classified (principal); R73.01 Impaired fasting glucose; E78.00 Pure hypercholesterolemia, unspecified
CPT/HCPCS: 80053

== ENCOUNTER → 2018-02-02 | Outpatient (REF) | payer BC, OTHER ==
[2018-02-02 22:19] LABS: APPEARANCE, URINE TURBID (CLEAR); BACTERIA, URINE AUTO 3+ (NEGATIVE); BILIRUBIN, URINE AUTO NEGATIVE (NEGATIVE); BLOOD, URINE BLOOD NEGATIVE (NEGATIVE); COLOR, URINE AMBER (YELLOW); GLUCOSE, URINE (UA) AUTO NEGATIVE (NEGATIVE); KETONE, URINE AUTO NEGATIVE (NEGATIVE); LEUKOCYTE ESTERASE, URINE AUTO 3+ (NEGATIVE); NITRITE, URINE AUTO NEGATIVE (NEGATIVE); PROTEIN, URINE AUTO 1+ mg/dL (NEGATIVE); RBC, URINE AUTO 4 /HPF (0-3); SPECIFIC GRAVITY URINE AUTO 1.014 (1.002-1.035); SQUAMOUS EPITHELIAL CELL UR AU 0 /HPF (0-6); UROBILINOGEN, URINE AUTO 0.2 mg/dL (0.0-2.0); WBC, URINE AUTO TNTC /HPF (0-3)
== END ==
LOC: M LAB REF 21:39
DX: N39.0 Urinary tract infection, site not specified (principal)
CPT/HCPCS: 81001

== ENCOUNTER → 2018-07-01 | Outpatient (REF) | payer OTHER | LOC: M LAB REF 16:14 | DX: N39.0 Urinary tract infection, site not specified (principal) | CPT/HCPCS: 87086 ==

== ENCOUNTER → 2018-11-05 | Outpatient (CLI) | payer MEDICARE, BC, OTHER ==
[2018-11-05 07:40] LABS: ALBUMIN 3.1 GM/DL (3.2-5.2); ALT/SGPT 21 U/L (12-78); BILIRUBIN,TOTAL 0.5 MG/DL (0.2-1.0); BLOOD UREA NITROGEN 19 MG/DL (7-18); CALCIUM LEVEL 8.7 MG/DL (8.8-10.2); CARBON DIOXIDE LEVEL 31 MEQ/L (21-32); CHLORIDE LEVEL 108 MEQ/L (98-107); CREATININE FOR GFR 0.76 MG/DL (0.55-1.30); GLOMERULAR FILTRATION RATE > 60.0 (>45); GLUCOSE, FASTING 103 MG/DL (70-100); POTASSIUM SERUM 4.6 MEQ/L (3.5-5.1); SODIUM LEVEL 142 MEQ/L (136-145); TOTAL PROTEIN 6.6 GM/DL (6.4-8.2)
[2018-11-05 09:15] LABS: HEMOGLOBIN A1c 5.2 %
== END ==
LOC: M LAB 06:50
PROVIDERS: ATTEND Family Medicine
DX: R73.01 Impaired fasting glucose (principal); K76.0 Fatty (change of) liver, not elsewhere classified

== ENCOUNTER → 2019-05-24 | Outpatient (REF) | payer MEDICARE, OTHER ==
[2019-05-24 20:12] LABS: APPEARANCE, URINE HAZY (CLEAR); BACTERIA, URINE AUTO NEGATIVE (NEGATIVE); BILIRUBIN, URINE AUTO NEGATIVE (NEGATIVE); BLOOD, URINE BLOOD NEGATIVE (NEGATIVE); COLOR, URINE YELLOW (YELLOW); GLUCOSE, URINE (UA) AUTO NEGATIVE (NEGATIVE); KETONE, URINE AUTO NEGATIVE (NEGATIVE); LEUKOCYTE ESTERASE, URINE AUTO TRACE (NEGATIVE); MUCUS, URINE SMALL (NEGATIVE); NITRITE, URINE AUTO NEGATIVE (NEGATIVE); PROTEIN, URINE AUTO NEGATIVE (NEGATIVE); RBC, URINE AUTO 0 /HPF (0-3); SPECIFIC GRAVITY URINE AUTO 1.011 (1.002-1.035); SQUAMOUS EPITHELIAL CELL UR AU 1 /HPF (0-6); UROBILINOGEN, URINE AUTO 0.2 mg/dL (0.0-2.0); WBC, URINE AUTO 2 /HPF (0-3)
== END ==
LOC: M SFHCADAM 14:43
PROVIDERS: ATTEND Family Medicine
DX: R30.0 Dysuria (principal)
CPT/HCPCS: 81001; 87086; 90670; G0009

== ENCOUNTER → 2019-12-07 | Outpatient (REF) | payer MEDICARE, OTHER ==
[2019-12-07 19:22] LABS: HEMATOCRIT 43.6 % (36.0-47.0); HEMOGLOBIN 14.2 g/dl (12.0-15.5); MEAN CORPUSCULAR HEMOGLOBIN 32.3 pg (27.0-33.0); MEAN CORPUSCULAR HGB CONC 32.6 g/dl (32.0-36.5); MEAN CORPUSCULAR VOLUME 99.3 fl (80.0-96.0); PLATELET COUNT, AUTOMATED 220 10^3/uL (150-450); RED BLOOD COUNT 4.39 10^6/uL (4.00-5.40); WHITE BLOOD COUNT 6.5 10^3/uL (4.0-10.0)
[2019-12-07 19:27] LABS: ALBUMIN 3.7 GM/DL (3.2-5.2); ALT/SGPT 26 U/L (12-78); BILIRUBIN,TOTAL 0.3 MG/DL (0.2-1.0); BLOOD UREA NITROGEN 21 MG/DL (7-18); CARBON DIOXIDE LEVEL 32 MEQ/L (21-32); CHLORIDE LEVEL 105 MEQ/L (98-107); CHOLESTEROL LEVEL 177 MG/DL (<200); CREATININE FOR GFR 0.88 MG/DL (0.55-1.30); FREE T4 1.18 NG/DL (0.76-1.46); GLOMERULAR FILTRATION RATE > 60.0 (>45); GLUCOSE, FASTING 100 MG/DL (70-100); HDL CHOLESTEROL 75 MG/DL (>40); LDL CHOLESTEROL 75 MG/DL (<100); NON-HDL-C 102 MG/DL; POTASSIUM SERUM 4.3 MEQ/L (3.5-5.1); SODIUM LEVEL 140 MEQ/L (136-145); THYROID STIMULATING HORMONE 0.897 uIU/ML (0.358-3.740); TOTAL PROTEIN 6.9 GM/DL (6.4-8.2); TRIGLYCERIDES LEVEL 133 MG/DL (<150)
== END ==
LOC: M SFHCADAM 15:23
PROVIDERS: ATTEND Family Medicine
DX: E78.00 Pure hypercholesterolemia, unspecified (principal); R73.01 Impaired fasting glucose; Z85.3 Personal history of malignant neoplasm of breast; K58.9 Irritable bowel syndrome, unspecified
CPT/HCPCS: 80053; 80061; 83036; 84439; 84443; 85027; G0463

== ENCOUNTER → 2020-11-13 | Outpatient (REF) | payer MEDICARE, OTHER ==
[2020-11-13 18:00] LABS: HEMATOCRIT 44.4 % (36.0-47.0); HEMOGLOBIN 14.6 g/dl (12.0-15.5); MEAN CORPUSCULAR HEMOGLOBIN 32.4 pg (27.0-33.0); MEAN CORPUSCULAR HGB CONC 32.9 g/dl (32.0-36.5); MEAN CORPUSCULAR VOLUME 98.7 fl (80.0-96.0); PLATELET COUNT, AUTOMATED 209 10^3/uL (150-450); WHITE BLOOD COUNT 7.6 10^3/uL (4.0-10.0)
[2020-11-13 18:09] LABS: HEMOGLOBIN A1c 5.1 %
[2020-11-13 18:38] LABS: ALBUMIN 3.7 GM/DL (3.2-5.2); ALT/SGPT 23 U/L (12-78); BILIRUBIN,TOTAL 0.5 MG/DL (0.2-1.0); BLOOD UREA NITROGEN 23 MG/DL (7-18); CALCIUM LEVEL 9.6 MG/DL (8.8-10.2); CARBON DIOXIDE LEVEL 32 MEQ/L (21-32); CHLORIDE LEVEL 104 MEQ/L (98-107); CHOLESTEROL LEVEL 185 MG/DL (<200); CHOLESTEROL RISK RATIO 2.126 (<5); CREATININE FOR GFR 0.82 MG/DL (0.55-1.30); GLOMERULAR FILTRATION RATE > 60.0 (>45); GLUCOSE, FASTING 87 MG/DL (70-100); HDL CHOLESTEROL 87 MG/DL (>40); LDL CHOLESTEROL 70 MG/DL (<100); NON-HDL-C 98 MG/DL; POTASSIUM SERUM 4.6 MEQ/L (3.5-5.1); SODIUM LEVEL 138 MEQ/L (136-145); THYROID STIMULATING HORMONE 0.714 uIU/ML (0.358-3.740); TOTAL PROTEIN 7.2 GM/DL (6.4-8.2); TRIGLYCERIDES LEVEL 142 MG/DL (<150)
== END ==
LOC: M SFHCADAM 14:32
PROVIDERS: ATTEND Family Medicine
DX: M81.0 Age-related osteoporosis without current pathological fracture (principal); E78.00 Pure hypercholesterolemia, unspecified; R73.01 Impaired fasting glucose; Z85.3 Personal history of malignant neoplasm of breast
CPT/HCPCS: 80053; 80061; 83036; 84439; 84443; 85027; G0463

== ENCOUNTER → 2021-02-05 | Outpatient (REF) | payer MEDICARE, OTHER | LOC: M SFHCWAGY 17:26 | PROVIDERS: ATTEND Nurse Practitioner Women's Health | DX: Z12.4 Encounter for screening for malignant neoplasm of cervix (principal) | CPT/HCPCS: 87624; G0101; G0123 ==

== ENCOUNTER → 2021-05-13 | Outpatient (CLI) | payer MEDICARE, BC, OTHER ==
[2021-05-13 07:19] LABS: HEMOGLOBIN A1c 5.1 %
[2021-05-13 07:31] LABS: ALBUMIN 3.4 GM/DL (3.2-5.2); ALT/SGPT 22 U/L (12-78); BILIRUBIN,TOTAL 0.5 MG/DL (0.2-1.0); BLOOD UREA NITROGEN 21 MG/DL (7-18); CALCIUM LEVEL 8.6 MG/DL (8.8-10.2); CARBON DIOXIDE LEVEL 31 MEQ/L (21-32); CHLORIDE LEVEL 105 MEQ/L (98-107); CHOLESTEROL LEVEL 179 MG/DL (<200); CHOLESTEROL RISK RATIO 2.209 (<5); CREATININE FOR GFR 0.73 MG/DL (0.55-1.30); GLOMERULAR FILTRATION RATE > 60.0 (>45); GLUCOSE, FASTING 104 MG/DL (70-100); HDL CHOLESTEROL 81 MG/DL (>40); LDL CHOLESTEROL 84 MG/DL (<100); NON-HDL-C 98 MG/DL; POTASSIUM SERUM 4.8 MEQ/L (3.5-5.1); SODIUM LEVEL 139 MEQ/L (136-145); TOTAL PROTEIN 6.6 GM/DL (6.4-8.2); TRIGLYCERIDES LEVEL 68 MG/DL (<150)
[2021-05-13 11:06] LABS: TOTAL 25(OH) VITAMIN D 52.7 NG/ML (30.0-100.0)
== END ==
LOC: M LAB 06:22
PROVIDERS: ATTEND Family Medicine
DX: R73.01 Impaired fasting glucose (principal); E78.00 Pure hypercholesterolemia, unspecified; M81.0 Age-related osteoporosis without current pathological fracture

== ENCOUNTER → 2022-05-13 | Outpatient (CLI) | payer MEDICARE, BC, OTHER ==
[2022-05-13 08:30] LABS: HEMATOCRIT 41.3 % (36.0-47.0); HEMOGLOBIN 13.4 g/dl (12.0-15.5); MEAN CORPUSCULAR HEMOGLOBIN 32.6 pg (27.0-33.0); MEAN CORPUSCULAR HGB CONC 32.4 g/dl (32.0-36.5); MEAN CORPUSCULAR VOLUME 100.5 fl (80.0-96.0); PLATELET COUNT, AUTOMATED 179 10^3/uL (150-450); RED BLOOD COUNT 4.11 10^6/uL (4.00-5.40); WHITE BLOOD COUNT 5.8 10^3/uL (4.0-10.0)
[2022-05-13 09:03] LABS: BLOOD UREA NITROGEN 17 MG/DL (7-18); CARBON DIOXIDE LEVEL 32 MEQ/L (21-32); CHLORIDE LEVEL 105 MEQ/L (98-107); GLOMERULAR FILTRATION RATE > 60.0 (>45); GLUCOSE, FASTING 112 MG/DL (70-100); POTASSIUM SERUM 4.6 MEQ/L (3.5-5.1); SODIUM LEVEL 138 MEQ/L (136-145)
[2022-05-13 09:04] LABS: ALBUMIN 3.4 GM/DL (3.2-5.2); ALT/SGPT 30 U/L (12-78); BILIRUBIN,TOTAL 0.7 MG/DL (0.2-1.0); CALCIUM LEVEL 9.1 MG/DL (8.8-10.2); CHOLESTEROL LEVEL 166 MG/DL (<200); CHOLESTEROL RISK RATIO 2.155 (<5); FREE T4 1.12 NG/DL (0.76-1.46); HDL CHOLESTEROL 77 MG/DL (>40); LDL CHOLESTEROL 74 MG/DL (<100); NON-HDL-C 89 MG/DL; THYROID STIMULATING HORMONE 0.748 uIU/ML (0.358-3.740); TOTAL PROTEIN 6.6 GM/DL (6.4-8.2); TRIGLYCERIDES LEVEL 74 MG/DL (<150)
[2022-05-13 11:13] LABS: TOTAL 25(OH) VITAMIN D 45.8 NG/ML (30.0-100.0)
== END ==
LOC: M LAB 07:44
PROVIDERS: ATTEND Family Medicine
DX: M81.0 Age-related osteoporosis without current pathological fracture (principal); E78.00 Pure hypercholesterolemia, unspecified; R73.01 Impaired fasting glucose; Z85.3 Personal history of malignant neoplasm of breast; K58.9 Irritable bowel syndrome, unspecified

== ENCOUNTER → 2023-05-28 | Outpatient (CLI) | payer MEDICARE, OTHER ==
[2023-05-28 07:42] LABS: HEMATOCRIT 42.4 % (36.0-47.0); HEMOGLOBIN 13.6 g/dl (12.0-15.5); MEAN CORPUSCULAR HEMOGLOBIN 32.7 pg (27.0-33.0); MEAN CORPUSCULAR HGB CONC 32.1 g/dl (32.0-36.5); MEAN CORPUSCULAR VOLUME 101.9 fl (80.0-96.0); PLATELET COUNT, AUTOMATED 200 10^3/uL (150-450); RED BLOOD COUNT 4.16 10^6/uL (4.00-5.40); WHITE BLOOD COUNT 5.5 10^3/uL (4.0-10.0)
[2023-05-28 08:06] LABS: ALBUMIN 3.4 G/DL (3.2-5.2); ALKALINE PHOSPHATASE 85 U/L (46-116); ALT/SGPT 19 U/L (7.0-40); AST/SGOT 16 U/L (<34); BILIRUBIN,TOTAL 0.8 MG/DL (0.3-1.2); BLOOD UREA NITROGEN 13 MG/DL (9-23); CARBON DIOXIDE LEVEL 30 MMOL/L (20-31); CHLORIDE LEVEL 105 MMOL/L (98-107); CHOLESTEROL LEVEL 163 MG/DL (<200); CHOLESTEROL RISK RATIO 2.46 (<5); CREATININE FOR GFR 0.64 MG/DL (0.55-1.30); GLOMERULAR FILTRATION RATE > 60.0 (>45); GLUCOSE, FASTING 112 MG/DL (74-106); HDL CHOLESTEROL 66.1 MG/DL (>40); LDL CHOLESTEROL 77.3 MG/DL (<100); NON-HDL-C 96.9 MG/DL; POTASSIUM SERUM 4.7 MMOL/L (3.5-5.1); SODIUM LEVEL 142 MMOL/L (136-145); TOTAL PROTEIN 6.5 G/DL (5.7-8.2); TRIGLYCERIDES LEVEL 98 MG/DL (<150)
[2023-05-28 08:07] LABS: FREE T4 1.29 NG/DL (0.89-1.76); THYROID STIMULATING HORMONE 1.122 uIU/ML (0.55-4.78)
[2023-05-28 08:15] LABS: HEMOGLOBIN A1c 5.3 % (4.0-6.0)
== END ==
LOC: M LAB 07:09
PROVIDERS: ATTEND Family Medicine
DX: E78.00 Pure hypercholesterolemia, unspecified (principal); R73.01 Impaired fasting glucose; K76.0 Fatty (change of) liver, not elsewhere classified; Z85.3 Personal history of malignant neoplasm of breast

== ENCOUNTER → 2023-12-21 | Outpatient (CLI) | payer MEDICARE, BC, OTHER ==
[2023-12-21 15:21] LABS: BLOOD UREA NITROGEN 17 MG/DL (9-23); CALCIUM LEVEL 9.7 MG/DL (8.3-10.6); CARBON DIOXIDE LEVEL 30 MMOL/L (20-31); CHLORIDE LEVEL 101 MMOL/L (98-107); CREATININE FOR GFR 0.69 MG/DL (0.55-1.30); GLOMERULAR FILTRATION RATE > 60.0 (>39); GLUCOSE, FASTING 110 MG/DL (74-106); POTASSIUM SERUM 4.2 MMOL/L (3.5-5.1); SODIUM LEVEL 136 MMOL/L (136-145)
== END ==
LOC: M LAB 14:35
PROVIDERS: ATTEND Family Medicine
DX: I87.2 Venous insufficiency (chronic) (peripheral) (principal)

== ENCOUNTER → 2023-12-22 | Outpatient (REF) | payer MEDICARE, OTHER ==
[2023-12-22 14:52] LABS: C REACTIVE PROTEIN QUANTITATIV < 0.40 MG/DL (<1.0)
[2023-12-22 14:53] LABS: RHEUMATOID FACTOR QUANT 19.8 IU/ML (<14)
[2023-12-24 03:10] LABS: ANA (HEP2) Negative (.)
== END ==
LOC: M SFHCADAM 11:22
PROVIDERS: ATTEND Family Medicine
DX: M25.60 Stiffness of unspecified joint, not elsewhere classified (principal)

== ENCOUNTER → 2024-12-21 | Outpatient (CLI) | payer MEDICARE, BC ==
[2024-12-21 06:54] LABS: HEMATOCRIT 39.6 % (36.0-47.0); HEMOGLOBIN 12.7 g/dl (12.0-15.5); MEAN CORPUSCULAR HEMOGLOBIN 31.8 pg (27.0-33.0); MEAN CORPUSCULAR HGB CONC 32.1 g/dl (32.0-36.5); PLATELET COUNT, AUTOMATED 929 10^3/uL (150-450)
[2024-12-21 07:20] LABS: ALBUMIN 3.1 G/DL (3.2-5.2); ALKALINE PHOSPHATASE 83 U/L (35-104); ALT/SGPT 19 U/L (7.0-40); AST/SGOT 19 U/L (<34); BILIRUBIN,TOTAL 0.5 MG/DL (0.3-1.2); BLOOD UREA NITROGEN 15 MG/DL (9-23); C REACTIVE PROTEIN QUANTITATIV < 0.50 MG/DL (<1.0); CALCIUM LEVEL 9.2 MG/DL (8.3-10.6); CARBON DIOXIDE LEVEL 31 MMOL/L (20-31); CHLORIDE LEVEL 103 MMOL/L (98-107); CHOLESTEROL LEVEL 151 MG/DL (<200); CHOLESTEROL RISK RATIO 2.39 (<5); GLOMERULAR FILTRATION RATE > 60.0 (>39); GLUCOSE, FASTING 118 MG/DL (74-106); LDL CHOLESTEROL 73.6 MG/DL (<100); POTASSIUM SERUM 5.3 MMOL/L (3.5-5.1); SODIUM LEVEL 138 MMOL/L (136-145); TOTAL PROTEIN 6.5 G/DL (5.7-8.2); TRIGLYCERIDES LEVEL 72 MG/DL (<150)
[2024-12-21 07:21] LABS: RHEUMATOID FACTOR QUANT 25.1 IU/ML (<14)
[2024-12-21 07:22] LABS: FREE T4 1.57 NG/DL (0.89-1.76); THYROID STIMULATING HORMONE 0.887 uIU/ML (0.55-4.78); TOTAL 25(OH) VITAMIN D 59.1 NG/ML (20.0-100.0)
[2024-12-21 07:37] LABS: HEMOGLOBIN A1c 4.9 % (4.0-6.0)
== END ==
LOC: M LAB 06:08
PROVIDERS: ATTEND Family Medicine
DX: E78.00 Pure hypercholesterolemia, unspecified (principal); R73.01 Impaired fasting glucose; I34.9 Nonrheumatic mitral valve disorder, unspecified; E55.9 Vitamin D deficiency, unspecified; M85.80 Other specified disorders of bone density and structure, unspecified site; R76.8 Other specified abnormal immunological findings in serum

== ENCOUNTER → 2025-03-17 | Outpatient (CLI) | payer MEDICARE, BC | LOC: M PLAIMG 14:29 | PROVIDERS: ATTEND Family Medicine | DX: I34.9 Nonrheumatic mitral valve disorder, unspecified (principal) ==